=== PATIENT | female | born 1990 | race Caucasian/White ===

== ENCOUNTER 2020-11-11 07:25 | Inpatient (IN) | payer BC ==
[2020-11-11] MEDS: ELECTROLYTE-148 SOLN 1,000 ML IV SCH (08:15)
[2020-11-11] MEDS ORDERED: AMPICILLIN SODIUM 2 GM VIAL ONE (08:29)
[2020-11-11] MEDS ORDERED: PROMETHAZINE HCL 25 MG/1 ML VIAL ONE (08:29)
[2020-11-11] MEDS ORDERED: BUTORPHANOL TARTRATE 2 MG/ML VIAL ONE (08:29)
[2020-11-11] MEDS ORDERED: PROMETHAZINE HCL 25 MG/1 ML VIAL IVPB ONE (08:59)
[2020-11-11] MEDS ORDERED: BUTORPHANOL TARTRATE 1 MG/ML VIAL IVPB ONE (08:59)
[2020-11-11] MEDS ORDERED: AMPICILLIN - 2 GM in SODIUM CHLORIDE 100 ML IVPB ONE (09:00)
[2020-11-11 09:02] VITALS: BMI 27.4
[2020-11-11] MEDS ORDERED: AMPICILLIN SODIUM 1 GM VIAL ONE ×3 (12:55→21:05)
[2020-11-11] MEDS: AMPICILLIN - 1 GM in SODIUM CHLORIDE 100 ML IVPB SCH ×3 (13:17→21:05)
[2020-11-11] MEDS ORDERED: FENTANYL/BUPIVACAINE/NS/PF - PCEA - 50 ML DISP.SYRIN EP ONE ×3 (15:28→23:58)
[2020-11-11] MEDS ORDERED: PCA PUMP NR ONE ×2 (15:28→21:09)
[2020-11-11] MEDS ORDERED: NALOXONE HCL 0.4 MG/ML VIAL IVPUSH PRN (16:11)
[2020-11-11] MEDS ORDERED: BUPIVACAINE HCL/PF 0.25% (2.5MG/ML) 10 ML VIAL ONE (16:13)
[2020-11-11] MEDS: FENTANYL/BUPIVACAINE/NS/PF - PCEA - 50 ML DISP.SYRIN EP SCH (16:25)
[2020-11-11] MEDS ORDERED: OXYTOCIN 30 UNITS in 0.9% NS 30 UNIT/500 ML INFUS.BAG IVPB ONE (17:45)
[2020-11-11] MEDS: OXYTOCIN 30 UNITS in 0.9% NS 30 UNIT/500 ML INFUS.BAG IVPB SCH (17:50)
[2020-11-12] MEDS ORDERED: SODIUM CHLORIDE 100 ML IVPB ONE (00:02)
[2020-11-12] MEDS ORDERED: BUPIVACAINE HCL/PF 0.25% (2.5MG/ML) 10 ML VIAL ONE (00:02)
[2020-11-12] MEDS ORDERED: OXYTOCIN 30 UNITS in 0.9% NS 30 UNIT/500 ML INFUS.BAG IVPB ONE (00:20)
[2020-11-12] MEDS ORDERED: AMPICILLIN SODIUM 1 GM VIAL ONE (01:28)
[2020-11-12] MEDS: AMPICILLIN - 1 GM in SODIUM CHLORIDE 100 ML IVPB SCH (01:30)
[2020-11-12] MEDS ORDERED: LIDOCAINE HCL 1% PRESERVATIVE FREE - 30ML VIAL ONE (01:51)
[2020-11-12] MEDS ORDERED: OXYTOCIN 10 UNITS/ML VIAL ONE (02:41)
[2020-11-12] MEDS ORDERED: OXYTOCIN 10 UNITS/ML VIAL IM ONE (03:06)
[2020-11-12] MEDS ORDERED: METHYLERGONOVINE MALEATE 0.2 MG/1 ML AMP IM PRN (03:12)
[2020-11-12] MEDS ORDERED: BENZOCAINE 20% 57 GM BOTTLE TP PRN (03:12)
[2020-11-12] MEDS ORDERED: WITCH HAZEL 50% (TUCKS) 40 PAD/JAR PAD TP PRN (03:12)
[2020-11-12] MEDS ORDERED: BENZOCAINE 28 GM HEMORRHOIDAL OINTMENT TP PRN (03:12)
[2020-11-12 03:27] LABS: CORD BASE EXCESS -6.7 mmol/L (0-2); CORD HCO3 19.9 mmHg (20-29); CORD PCO2 43.5 mmHg (30-78); CORD pH 7.278 (7.14-7.44)
[2020-11-12 03:28] LABS: CORD BASE EXCESS -9.9 mmol/L (0-2); CORD HCO3 19.3 mmHg (20-29); CORD pH 7.164 (7.14-7.44)
[2020-11-12] MEDS: ACETAMINOPHEN 325 MG TABLET (FP) PO PRN ×3 (03:35→15:41)
[2020-11-12] MEDS: IBUPROFEN 600 MG TABLET (FP) PO PRN ×3 (03:35→15:40)
[2020-11-12] MEDS: PRENATAL VITAMINS W/ FOLIC ACID TABLET (FP) PO SCH (10:18)
[2020-11-12] MEDS: BISACODYL 10 MG SUPP.RECT RC PRN ×2 (11:27→18:37)
[2020-11-12] MEDS: FENTANYL/BUPIVACAINE/NS/PF - PCEA - 50 ML DISP.SYRIN EP SCH (19:41)
[2020-11-12] MEDS: ELECTROLYTE-148 SOLN 1,000 ML IV SCH (19:41)
[2020-11-12] MEDS: OXYTOCIN 30 UNITS in 0.9% NS 30 UNIT/500 ML INFUS.BAG IVPB SCH (19:42)
[2020-11-12] MEDS ORDERED: SENNOSIDES/DOCUSATE COMBO (SENNA PLUS) TABLET (UD) PO PRN (23:11)
[2020-11-12] MEDS ORDERED: HYDROCORTISONE 2.5% TOPICAL CREAM 30 GM TUBE TP PRN (23:12)
[2020-11-13] MEDS: IBUPROFEN 600 MG TABLET (FP) PO PRN ×3 (00:18→19:17)
[2020-11-13] MEDS: ACETAMINOPHEN 325 MG TABLET (FP) PO PRN ×3 (00:18→19:18)
[2020-11-13 08:35] LABS: BASO % 0.2 % (0-2.0); EOS % 1.3 % (0-4.5); HEMATOCRIT 30.6 % (32.4-45.2); HEMOGLOBIN 9.8 GM/dL (10.7-15.3); LYMPH % 18.7 % (8-40); MCH 26.4 pg (25.7-33.7); MCHC 32.2 g/dl (32.0-36.0); MEAN CELL VOLUME 82.2 fl (80-96); MEAN PLT VOLUME 10.3 fl (7.5-11.1); MONO % 5.3 % (3.8-10.2); NEUT % 74.5 % (42.8-82.8); PLATELET COUNT 184 K/MM3 (134-434); RBC 3.73 M/mm3 (3.60-5.2); RDW 24.6 % (11.6-15.6); WHITE BLOOD COUNT 10.7 K/mm3 (4.0-10.0)
[2020-11-13] MEDS: PRENATAL VITAMINS W/ FOLIC ACID TABLET (FP) PO SCH (09:49)
[2020-11-13 10:13] LABS: ANISOCYTOSIS 1+; MACROCYTOSIS 1+; OVALOCYTE 1+; PLATELET ESTIMATE NORMAL
[2020-11-13] MEDS: ELECTROLYTE-148 SOLN 1,000 ML IV SCH (19:51)
[2020-11-13 21:19] VITALS: TEMP 98
[2020-11-13] MEDS ORDERED: SENNOSIDES/DOCUSATE COMBO (SENNA PLUS) TABLET (UD) PO PRN (22:00)
[2020-11-14 09:07] VITALS: BP 123/74; PULSE 88
[2020-11-14] MEDS: PRENATAL VITAMINS W/ FOLIC ACID TABLET (FP) PO SCH (12:05)
== END 2020-11-14 13:10 | disposition home or self-care (01) | DRG 807 ==
LOC: JDEL 07:25 → JLDR 08:00 → J3W 11-12 05:29
PROVIDERS: ADMIT Obstetrics & Gynecology; ATTEND Obstetrics & Gynecology
PROC: 10907ZC Drainage of Amniotic Fluid, Therapeutic from Products of Conception, Via Natural or Artificial Opening (ICD-10-PCS; 2020-11-11)
PROC: 10D07Z6 Extraction of Products of Conception, Vacuum, Via Natural or Artificial Opening (ICD-10-PCS; principal; 2020-11-12)
PROC: 0W8NXZZ Division of Female Perineum, External Approach (ICD-10-PCS; 2020-11-12)
DX: O75.81 Maternal exhaustion complicating labor and delivery (principal); Z37.0 Single live birth; O69.81X0 Labor and delivery complicated by cord around neck, without compression, not applicable or unspecified; O34.83 Maternal care for other abnormalities of pelvic organs, third trimester; N83.292 Other ovarian cyst, left side; O99.02 Anemia complicating childbirth; D64.9 Anemia, unspecified; O99.824 Streptococcus B carrier state complicating childbirth; N94.2 Vaginismus; Z3A.39 39 weeks gestation of pregnancy; Z86.59 Personal history of other mental and behavioral disorders; Z91.410 Personal history of adult physical and sexual abuse
CPT/HCPCS: 36415; 36600; 82803; 85025